=== PATIENT | female | born 1930 | race Caucasian/White ===

== ENCOUNTER 2016-05-29 11:37 | Emergency (ER) | payer MEDICARE, MEDICAID ==
[~2016-05-29] VITALS: Ht 162.6 cm; Wt 77.1 kg
[~2016-05-29 11:37] MED LIST: AMLO5TAB2 PO; BETH25TA PO; DONE5TAB30 PO; DONE5TAB8 PO; HCT25T PO; LEVO50TA PO; LEVO50TA6 PO; LISI-552 PO; LISI10TA2 PO; MECL-124 PO; MEMA5TAB PO; MEMA5TAB16 PO; SCOP1PAT TD
--- OUTSIDE RECORDS SUMMARY | 2016-05-29 11:44 | XMS REPORT | Continuity of Care Document ---
Author Author [facility] Organization [facility] Address Unknown Phone Unavailable Care Team Providers Care Transactional Paralegal Name Role Phone PCP Unavailable Source Comments Some departments are not documenting in the electronic medical record. If you do not see the information that you expected, contact Release of Information in the Health Information Management department at [phone] for further assistance in locating additional records.[facility] Active Allergies and Adverse Reactions Allergen Noted Date Severity Reactions Comments Penicillins 01/03/2015 Medium HIVES Current Medications Prescription Sig. Disp. Refills Start End Date Status Date erythromycin (ROMYCIN) Apply 0.5 Inches to both 1 Tube 2 01/04/20 Active ophthalmic ointment eyes twice daily. 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 To OR for wide excision with frozen sections and reconstruction. Excisional biopsy of right lower eyelid Nuclear sclerotic cataract of both eyes 01/03/2015 Last Assessment & Plan: Needs to establish care with a primary eye doctor for evaluation. 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 01/03/2015 Social History Tobacco Use Types Packs/Day Years Used Date Never Smoker Last Filed Vital Signs Vital Sign Reading Time Taken Blood Pressure 144/84 01/03/2015 12:54 PM CDT Pulse 92 01/03/2015 12:54 PM CDT Temperature - - Respiratory Rate - - Height 1.702 m (5' 7") 01/03/2015 12:54 PM CDT Weight 74.39 kg (164 lb) 01/03/2015 12:54 PM CDT Body Mass Index 25.68 01/03/2015 12:54 PM CDT Oxygen Saturation - - Plan of Care Health Maintenance Due Date Last Done Comments Physical (Comprehensive) 08/27/1939 Exam Pertussis Vaccine 08/27/1943 Tetanus Vaccine 1949 Breast Cancer Screening 1972 Shingles Vaccine 1992 Osteoporosis Screening 1997 Prevnar/Pneumovax (#1) 1997 Influenza Vaccine 01/18/2015 Results from Last 3 Months Not on file
[2016-05-29 12:21] LABS: BILIRUBIN,URINE NEGATIVE (NEGATIVE); KETONES,URINE NEGATIVE (NEGATIVE); LEUKOCYTE ESTERASE ,URINE 3+ (NEGATIVE); NITRITE,URINE POSITIVE (NEGATIVE); PH,URINE 6 (5-9); PROTEIN,URINE 1+ (NEGATIVE); UROBILINOGEN,URINE NORMAL (NORMAL)
--- NOTE | 2016-05-29 12:25 | ED GU-Female ---
General Chief Complaint: -Female Stated Complaint: UNABLE TO URINATE Source: patient, family Exam Limitations: no limitations History of Present Illness Time seen by provider: 12:00 Initial Comments Here with report unable to urinate. Apparently had Lewis catheter removed yesterday and has not urinated since. Patient has neurogenic bladder. Denies any pain, fever or breathing problems. Here for catheter placement and then will follow-up with her primary care doctor, Dr. Schuster. Timing/Duration: yesterday, getting worse Severity/Quality: mild, other (fullness) Location: suprapubic Associated Symptoms: No fever/chills, No nausea/vomiting, No urinary frequency Allergies and Home Medications Allergies Coded Allergies: Penicillins (Unverified Allergy, Unknown, 05/06/16) Home Medications Amlodipine Besylate 5 Mg Tablet 30Days 5 MG PO DAILY Prescribed by: MOOKIE STATON on 05/09/16 1214 Bethanechol Chloride 25 Mg Tablet 30Days 50 MG PO ACHS Prescribed by: CHRISTIAN COX on 05/04/16 1120 Donepezil HCl 5 Mg Tablet 5 MG PO HS (Reported) Levothyroxine Sodium 50 Mcg Tablet 50 MCG PO DAILY (Reported) Lisinopril 20 Mg Tablet 30Days 20 MG PO DAILY Prescribed by: MOOKIE STATON on 05/09/16 1214 Memantine HCl 5 Mg Tablet 5 MG PO DAILY (Reported) Constitutional: see HPINo chills, No fever Respiratory: no symptoms reported Cardiovascular: no symptoms reported Genitourinary: see HPIdenies dysuria Past Ucvtpnd-Sfxojw-Nefzio Hx Patient Social History Alcohol Use: Denies Use Recreational Drug Use: No Smoking Status: Never a Smoker Recent Foreign Travel: No Contact w/Someone Who Travel: No Recent Hopitalizations: No Seasonal Allergies Seasonal Allergies: No Surgeries HX Surgeries: No Respiratory Hx Respiratory Disorders: No Cardiovascular Hx Cardiac Disorders: Yes Cardiac Disorders: Hypertension Neurological Hx Neurological Disorders: Yes (Confusion, Fall 04/30/16 with confusion noted) Reproductive System Hx Reproductive Disorders: No Genitourinary Hx Genitourinary Disorders: Yes (UTI's) Genitourinary Disorders: UTI-Chronic Gastrointestinal Hx Gastrointestinal Disorders: No Musculoskeletal Hx Musculoskeletal Disorders: No Endocrine Hx Endocrine Disorders: Yes Endocrine Disorders: Hypothyroidsim HEENT HX ENT Disorders: No Cancer Hx Cancer: No Psychosocial Hx Psychiatric Problems: No Integumentary HX Skin/Integumentary Disorder: No Blood Transfusions Hx Blood Disorders: No Family Medical History Significant Family History: Other Conditions/Hx Family Medial History: Patient reports no known family medical history. Physical Exam Vital Signs Vital Sign - Last 12Hours 05/29/16 11:58 Temp 96.9 Pulse 90 Resp 18 B/P 160/103 Pulse Ox 96 O2 Delivery Room Air Capillary Refill : General Appearance: WD/WN no apparent distress Cardiovascular: regular rate, rhythm no murmur Respiratory: lungs clear normal breath sounds Gastrointestinal: non tender soft Neurologic/Psychiatric: alert oriented x 3 Progress/Results/Core Measures Results/Orders Lab Results Laboratory Tests Test 05/29/16 12:14 Range/Units Urine Bacteria MODERATE H /HPF Urine Bilirubin NEGATIVE NEGATIVE Urine Casts NONE /LPF Urine Clarity SLIGHTLY CLOUDY Urine Color YELLOW Urine Crystals NONE /LPF Urine Culture Indicated YES Urine Glucose (UA) NEGATIVE NEGATIVE Urine Ketones NEGATIVE NEGATIVE Urine Leukocyte Esterase 3+ H NEGATIVE Urine Mucus NEGATIVE /LPF Urine Nitrite POSITIVE H NEGATIVE Urine Protein 1+ H NEGATIVE Urine RBC 2-5 H /HPF Urine RBC (Auto) 1+ H NEGATIVE Urine Specific [place] 1.020 1.016-1.022 Urine Squamous Epithelial Cells 5-10 /HPF Urine Urobilinogen NORMAL NORMAL MG/DL Urine WBC 50-100 H /HPF Urine pH 6 5-9 My Orders Orders-YOUSIF MATHEW MD Catheter(Urinary) Insert & Ass (05/29/16 12:03) Vital Signs/I&O Vital Sign - Last 12Hours 05/29/16 11:58 Temp 96.9 Pulse 90 Resp 18 B/P 160/103 Pulse Ox 96 O2 Delivery Room Air Progress Note : Progress Note Seen and evaluated. Lewis catheter placed via 16 [place] Lewis. UA obtained. Approximately 800 mL of yellow urine obtained. No difficulty with placement or pain noted. Discharged home with return precautions. Patient verbalize understanding instructions and agreement with plan. She will follow-up with Dr. Schuster today for discussion about home health nursing for her other underlying medical conditions as well as the Lewis catheter. Departure Impression Impression: Primary Impression: Urinary retention Additional Impression: Urinary tract infection Qualified Code: N30.00 - Acute cystitis without hematuria Disposition: HOME, SELF-CARE Condition: Improved Departure-Patient Inst. Decision time for Depature: 12:24 Referrals: GILMA SCHUSTER DO (PCP/Family) Primary Care Physician Patient Instructions: How to Care for Your Lewis Catheter, Female, Urinary Retention (DC), Urinary Tract Infection, Adult (DC) Add. Discharge Instructions: All discharge instructions reviewed with patient and/or family. Voiced understanding. Follow-up with Dr. Schuster after discharge from here. Return for worse pain, swelling, weakness, breathing problems, fever or other concerns as needed. Catheter care as described in per previous instructions. Scripts Cephalexin 500 Mg [id number] Mg PO TID #21 TAB Prov:YOUSIF MATHEW MD 05/29/16 Copy Copies To 1: GILMA SCHUSTER TIMOTHY D MD May 29, 2016 12:25
[2016-05-29 12:36] LABS: WBC,URINE 50-100 /HPF
[2016-05-29] MEDS ORDERED: CEPH500T PO (12:53)
[2016-05-29] MEDS ORDERED: [UNRECOGNIZED DRUG - OTHER] (13:02)
[2016-05-29 13:23] VITALS: BP 160/90
== END 2016-05-29 13:22 | disposition home or self-care (01) ==
LOC: EDUNIT# 11:37 → ER 11:39
DX: R33.9 Retention of urine, unspecified (principal); N31.9 Neuromuscular dysfunction of bladder, unspecified; N39.0 Urinary tract infection, site not specified; I10 Essential (primary) hypertension; Z79.899 Other long term (current) drug therapy
CPT/HCPCS: 51702; 81000; 87077; 87088; 87186

== ENCOUNTER 2016-06-27 12:06 | Inpatient (IN) | payer MEDICARE, MEDICAID ==
[2016-06-27] VITALS (15 sets, daily range): BP systolic 54–111; BP diastolic 26–92
[~2016-06-27] VITALS: Ht 157.5 cm; Wt 72.4 kg
[~2016-06-27 12:06] MED LIST changes: +CEPH500T PO; +[UNRECOGNIZED DRUG - OTHER]
--- OUTSIDE RECORDS SUMMARY | 2016-06-27 12:11 | XMS REPORT | Continuity of Care Document ---
Author Author [facility] Organization [facility] Address Unknown Phone Unavailable Care Team Providers Care Legal Recruiter Name Role Phone PCP Unavailable Source Comments Some departments are not documenting in the electronic medical record. If you do not see the information that you expected, contact Release of Information in the Health Information Management department at [phone] for further assistance in locating additional records.[facility] Active Allergies and Adverse Reactions Allergen Noted [...]
[2016-06-27] MEDS ORDERED: NS 1000 ML IV BAG IV ONE (12:15)
--- NOTE | 2016-06-27 12:33 | ED General ---
General Chief Complaint: Dizziness/Syncope Stated Complaint: DIZZY, NOT EATING OR DRINKING Source of Information: Patient, Family Exam Limitations: No Limitations History of Present Illness Time Seen by Provider: 12:32 Initial Comments Patient was sent here from the doctor's office for evaluation of dehydration. Apparently the patient has not been eating or drinking much in the past several days. She is very lightheaded. She nearly passed out on the toilet yesterday. He denies vomiting or diarrhea. She denies pain although the esgqindg-wi-eua says she has been complaining of chest pain. No shortness of air. Allergies and Home Medications Allergies Coded Allergies: Penicillins (Unverified Allergy, Unknown, 05/06/16) Home Medications Donepezil HCl 5 Mg Tablet 5 MG PO HS (Reported) Levothyroxine Sodium 50 Mcg Tablet 50 MCG PO DAILY (Reported) Memantine HCl 5 Mg Tablet 5 MG PO DAILY (Reported) Mirtazapine 7.5 Mg Tablet 7.5 MG PO HS (Reported) Constitutional: malaise weakness EENTM: no symptoms reported Respiratory: no symptoms reported Cardiovascular: chest pain All Other Systems Reviewed Negative Unless Noted: Yes Past Mdwfxle-Mlsrbr-Eelatr Hx Patient Social History Recent Foreign Travel: No Contact w/Someone Who Travel: No Recent Hopitalizations: No Seasonal Allergies Seasonal Allergies: No Surgeries HX Surgeries: No Respiratory Hx Respiratory Disorders: No Cardiovascular Hx Cardiac Disorders: Yes Cardiac Disorders: Hypertension Neurological Hx Neurological Disorders: Yes (Confusion, Fall 04/30/16 with confusion noted) Reproductive System Hx Reproductive Disorders: No Genitourinary Hx Genitourinary Disorders: Yes (UTI's) Genitourinary Disorders: UTI-Chronic Gastrointestinal Hx Gastrointestinal Disorders: No Musculoskeletal Hx Musculoskeletal Disorders: No Endocrine Hx Endocrine Disorders: Yes Endocrine Disorders: Hypothyroidsim HEENT HX ENT Disorders: No Cancer Hx Cancer: No Psychosocial Hx Psychiatric Problems: No Integumentary HX Skin/Integumentary Disorder: No Blood Transfusions Hx Blood Disorders: No Reviewed Nursing Assessment Reviewed/Agree w Nursing PMH: Yes Family Medical History Significant Family History: Other Conditions/Hx Family Medial History: Patient reports no known family medical history. Physical Exam Vital Signs Vital Sign - Last 12Hours 06/27/16 06/27/16 12:15 13:06 Temp 98.2 Pulse 114 Resp 18 B/P 87/51 Pulse Ox 95 O2 Delivery Room Air Capillary Refill : General Appearance: No Apparent Distress WD/WN Eyes: Bilateral Eye EOMI, Bilateral Eye Normal Inspection, Bilateral Eye PERRL HEENT: PERRL/EOMI Pharynx Normal Neck: Supple Respiratory: Lungs Clear Normal Breath Sounds Cardiovascular: Regular Rate, Rhythm No Edema Gastrointestinal: Non Tender Soft Extremity: Normal Inspection Normal Range of Motion Neurologic/Psychiatric: Alert No Motor/Sensory Deficits Normal Mood/Affect Other (oriented to person and place only, awake alert, denies pain) Skin: Normal Color Warm/Dry Progress/Results/Core Measures Results/Orders Lab Results Laboratory Tests Test 06/27/16 12:23 06/27/16 12:33 06/27/16 13:16 Range/Units B-Type Natriuretic Peptide 1837.6 H <100.0 PG/ML Alanine Aminotransferase (ALT/SGPT) 25 0-55 U/L Albumin 3.5 3.2-4.5 G/DL Alkaline Phosphatase 73 40-136 U/L Anion Gap 15 H 5-14 MMOL/L Anisocytosis SLIGHT Aspartate Amino Transf (AST/SGOT) 91 H 5-34 U/L BUN/Creatinine Ratio 13 Band Neutrophils 1 % Basophils # (Auto) 0.0 0.0-0.1 10^3/uL Basophils % (Manual) 0 % Basophils (%) (Auto) 0 0-10 % Blood Urea Nitrogen 30 H 7-18 MG/DL Calcium Level 9.1 8.5-10.1 MG/DL Carbon Dioxide Level 19 L 21-32 MMOL/L Chloride Level 104 98-107 MMOL/L Creatinine 2.25 H 0.60-1.30 MG/DL Eosinophils # (Auto) 0.0 0.0-0.3 10^3/uL Eosinophils % (Manual) 0 % Eosinophils (%) (Auto) 0 0-10 % Estimat Glomerular Filtration Rate 21 Glucose Level 133 H 70-105 MG/DL Hematocrit 38 35-52 % Hemoglobin 12.3 11.5-16.0 G/DL Lymphocytes # (Auto) 4.8 H 1.0-4.0 X 10^3 Lymphocytes % (Manual) 21 % Lymphocytes (%) (Auto) 18 12-44 % Mean Corpuscular Hemoglobin 30 25-34 PG Mean Corpuscular Hemoglobin Concent 33 32-36 G/DL Mean Corpuscular Volume 91 80-99 FL Mean Platelet Volume 10.3 7.4-10.4 FL Monocytes # (Auto) 1.9 H 0.0-1.0 X 10^3 Monocytes % (Manual) 7 % Monocytes (%) (Auto) 7 0-12 % Neutrophils # (Auto) 19.8 H 1.8-7.8 X 10^3 Neutrophils % (Manual) 71 % Neutrophils (%) (Auto) 75 42-75 % Platelet Count 300 130-400 10^3/uL Potassium Level 4.0 3.6-5.0 MMOL/L Red Blood Count 4.14 L 4.35-5.85 10^6/uL Red Cell Distribution Width 14.8 H 10.0-14.5 % Sodium Level 138 135-145 MMOL/L Total Bilirubin 0.8 0.1-1.0 MG/DL Total Protein 6.8 6.4-8.2 G/DL Troponin I 90.50 *H <0.30 NG/ML White Blood Count 26.4 H 4.3-11.0 10^3/uL Lactic Acid Level 3.1 *H 0.5-2.0 MMOL/L My Orders Orders-JUAN JOSÉ GRIGGS MD Cbc With Automated Diff (06/27/16 12:08) Comprehensive Metabolic Panel (06/27/16 12:08) Ua Culture If Indicated (06/27/16 12:08) Ns Iv 1000 Ml (Sodium Chloride 0.9%) (06/27/16 12:15) Troponin I (06/27/16 12:16) Ekg Tracing (06/27/16 12:16) Chest 1 View, Ap/Pa Only (06/27/16 12:16) Manual Differential (06/27/16 12:33) Lactic Acid Analyzer (06/27/16 12:55) Blood Culture (06/27/16 12:55) Ns Iv 1000 Ml (Sodium Chloride 0.9%) (06/27/16 13:30) BNP (06/27/16 13:22) Lidocaine 1% Injection (Xylocaine 1% Inj (06/27/16 14:13) Ns Iv 1000 Ml (Sodium Chloride 0.9%) (06/27/16 14:13) Heparin ([employer]) (Heparin ([employer])) (06/27/16 14:13) Midazolam Injection (Versed Injection) (06/27/16 14:14) Fentanyl Injection (Sublimaze Injection (06/27/16 14:14) Medications Given in ED Current Medications Medications Dose Ordered Sig/Husam Route Start Time Stop Time Status Last Admin Dose Admin Sodium Chloride 1,000 ml ONCE ONCE IV 06/27/16 12:15 06/27/16 12:16 DC 06/27/16 12:53 1,000 ML Vital Signs/I&O Vital Sign - Last 12Hours 06/27/16 06/27/16 12:15 13:06 Temp 98.2 98.2 Pulse 114 102 Resp 18 16 B/P 87/51 97/59 Pulse Ox 95 93 O2 Delivery Room Air Progress Note : Time: 13:58 Progress Note Patient remains remarkably asymptomatic. Blood pressure 91/48 heart rate 97 after fluid infusion. No source of infection. I suspect white count and lactic acidosis are secondary to myocardial infarction. Lewis inserted, no urine output thus far. ECG Initial ECG Rhythm: Normal Sinus Initial ECG Intervals: Normal Initial ECG Impression: Nonspecific Changes Comment There are Q waves anteriorly with ST elevation. This represents an [place] of uncertain age. Critical Care Note Critical Care Total Time (minutes) Total critical care time spent with this patient was 30 minutes Departure Communication Time/Spoke to Admitting Phy: 13:54 Communication I spoke with Dr. Schuster he agrees to admit the ICU. Time/Spoke to Consulting Physi: 13:59 Communication/Consulting I spoke with Dr. Rosales. He is coming to the ER to evaluate the patient. Progress Notes Dr. Rosales saw patient and plans on taking her to the catheter lab Impression Impression: Primary Impression: Myocardial infarction Qualified Code: I21.4 - Non-ST elevation (NSTEMI) myocardial infarction Additional Impression: Acute renal failure Disposition: ADMITTED INPATIENT Condition: Stable Decision to Admit Reason: Admit from ER (General) Decision to Admit/Date: Jun 27, 2016 Time/Decision to Admit Time: 14:19 Departure-Patient Inst. Referrals: GILMA SCHUSTER DO (PCP/Family) Primary Care Physician JUAN JOSÉ GRIGGS MD Jun 27, 2016 12:33
[2016-06-27 12:45] LABS: BASOPHILS % (AUTO) 0 % (0-10); EOSINOPHILS % (AUTO) 0 % (0-10); LYMPHOCYTES # (AUTO) 4.8 X 10^3 (1.0-4.0); LYMPHOCYTES % (AUTO) 18 % (12-44); MEAN CORPUSCULAR HEMOGLOBIN 30 PG (25-34); MEAN CORPUSCULAR HGB CONC 33 G/DL (32-36); MEAN CORPUSCULAR VOLUME 91 FL (80-99); MEAN PLATELET VOLUME 10.3 FL (7.4-10.4); MONOCYTES # (AUTO) 1.9 X 10^3 (0.0-1.0); MONOCYTES % (AUTO) 7 % (0-12); NEUTROPHILS # (AUTO) 19.8 X 10^3 (1.8-7.8); NEUTROPHILS % (AUTO) 75 % (42-75); PLATELET COUNT 300 10^3/uL (130-400); RED BLOOD COUNT 4.14 10^6/uL (4.35-5.85); RED CELL DISTRIBUTION WIDTH 14.8 % (10.0-14.5); WHITE BLOOD COUNT 26.4 10^3/uL (4.3-11.0)
[2016-06-27] MEDS ORDERED: MIRT7.5T8 PO (12:52)
[2016-06-27 13:11] LABS: ALBUMIN 3.5 G/DL (3.2-4.5); BILIRUBIN,TOTAL 0.8 MG/DL (0.1-1.0); CALCIUM 9.1 MG/DL (8.5-10.1); CREATININE SERUM 2.25 MG/DL (0.60-1.30); TOTAL PROTEIN 6.8 G/DL (6.4-8.2)
[2016-06-27 13:16] LABS: ANISOCYTOSIS SLIGHT; BAND NEUTROPHILS 1 %; BASOPHILS % (MANUAL) 0 %; EOSINOPHILS % (MANUAL) 0 %; LYMPHOCYTES % (MANUAL) 21 %; NEUTROPHILS % (MANUAL) 71 %
--- NOTE | 2016-06-27 13:19 | Diagnostic Imaging Report ---
EXAM: CHEST 1 VIEW, AP/PA ONLY INDICATION: Chest pain. Dizziness. COMPARISON: Chest radiograph 02/12/2010. FINDINGS: Normal heart size and pulmonary vascularity. Elevation of the right hemidiaphragm. Mild atelectasis or infiltrate in the medial right lung base. Calcified aorta. No pleural effusion or pneumothorax. 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 IMPRESSION: 1. Mild atelectasis or infiltrate in the medial right lung base may be due to the elevation of right hemidiaphragm. No other acute cardiopulmonary findings. 2. 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 Dictated by: Dictated on workstation # [id number]
[2016-06-27] MEDS ORDERED: NS IV 1000 ML 1,000 ML IV SCH ×3 (13:30→21:30)
[2016-06-27 13:37] LABS: TROPONIN I 90.5 NG/ML (<0.30)
[2016-06-27] MEDS ORDERED: LIDOCAINE 1% INJ 20 ML (XYLOCAINE) VIAL ONE (14:13)
[2016-06-27] MEDS ORDERED: HEParin (CATH LAB) 2,000 ML IV ONE (14:13)
[2016-06-27] MEDS ORDERED: NS IV 1000 ML 1,000 ML ONE (14:13)
[2016-06-27] MEDS ORDERED: fentaNYL INJECTION 100 MCG/2 ML AMP ONE (14:14)
[2016-06-27] MEDS ORDERED: MIDAZOLAM 5 MG/5 ML (VERSED) VIAL ONE (14:14)
--- OUTSIDE RECORDS SUMMARY | 2016-06-27 14:35 | XMS REPORT | Continuity of Care Document ---
Author Author [facility] Organization [facility] Address Unknown Phone Unavailable Care Team Providers Care Railroad Worker Name Role Phone PCP Unavailable Source Comments Some departments are not documenting in the electronic medical record. If you do not see the information that you expected, contact Release of Information in the Health Information Management department at [phone] for further assistance in locating additional records.[facility] Active Allergies and Adverse Reactions Allergen Noted [...]
--- OUTSIDE RECORDS SUMMARY | 2016-06-27 14:35 | XMS REPORT | Continuity of Care Document ---
Author Author [facility] Organization [facility] Address Unknown Phone Unavailable Care Team Providers Care Paraprofessional Education Assistant Name Role Phone PCP Unavailable Source Comments Some departments are not documenting in the electronic medical record. If you do not see the information that you expected, contact Release of Information in the Health Information Management department at [phone] for further assistance in locating additional records.[facility] Active Allergies and Adverse Reactions Allergen [...]
[2016-06-27] MEDS ORDERED: HEParin 1000 UNIT/ML (10ML VIAL) FOR BOLUS ONE (14:44)
[2016-06-27] MEDS ORDERED: NITROGLYCERIN DRIP 25 MG/D5W 250 ML IV ONE (14:44)
[2016-06-27] MEDS ORDERED: DOPamine DRIP 250 ML IV ONE (14:57)
[2016-06-27] MEDS ORDERED: NS IV 1000 ML 1,000 ML IV PRN (15:07)
[2016-06-27] MEDS ORDERED: NOREPINEPHRINE FOR DRIPS 4 MG in D5W 250 ML (IVPB) 250 ML IV SCH (15:07)
[2016-06-27] MEDS ORDERED: PIPERACILLIN SODIUM/TAZOBACTAM 4.5 GM in NS (IVPB) 100 ML IV SCH (15:15)
[2016-06-27] MEDS ORDERED: NS IV 1000 ML 2,000 ML IV PRN (15:15)
[2016-06-27] MEDS ORDERED: FAMOTIDINE 20 MG (PEPCID) TABLET PO PRN (15:15)
[2016-06-27] MEDS ORDERED: VANCOMYCIN IV ADD-VANTAGE 1,000 MG in SODIUM CHLORIDE (ADD-VANTAGE) 250 ML IV SCH (15:15)
[2016-06-27] MEDS ORDERED: PATIENT MAY USE OWN MEDS, ALL PO SCH (15:15)
[2016-06-27] MEDS ORDERED: PHARMACY TO DOSE IV SCH (15:15)
[2016-06-27] MEDS ORDERED: ASPIRIN 325 MG (5 GR) TABLET ONE (15:19)
[2016-06-27 15:31] LABS: INR 1.1 (0.8-1.4); PROTHROMBIN TIME PATIENT 14.1 SEC (12.2-14.7)
[2016-06-27] MEDS ORDERED: PHENTOLAMINE 5 MG/2 ML VIAL IJ ONE (16:15)
[2016-06-27] MEDS ORDERED: VANCOMYCIN 1250 MG/NS 250 ML IVPB IV NR ×2 (16:30)
[2016-06-27] MEDS ORDERED: ENOXAPARIN 30 MG/0.3 ML (LOVENOX) SYR SC SCH (16:30)
--- NOTE | 2016-06-27 16:30 | Cardiology History & Physical ---
HPI-Cardiology Cardiology Consultation Date of Consultation 06/27/16 Date of Admission Indication: CP, subacute CT HPI Patient is a very pleasant 85 y/o female who presented to the ER from her PCP office for further evaluation of dehydration and poor oral intake. Patient has dementia and is somewhat of poor historian, and most information is obtained from family member who is at her bedside. Family reports patient with complaints of intermittent CP over the last several days. Had episode of near syncope after using restroom yesterday. Reports decreased appetite over the past several days. Further workup in the ER revealed patient with NSTEMI. Patient taken to the metallurgical lab technician for cardiac catheterization. patient was seen and evaluated with Tabby, she is an 85-year-old lady seen in the emergency room with acute chest pain and change in mental status, has been confused, had a fall 4 days ago, has been having generalized weakness and loss of energy. Noted to have abnormal EKG with elevated troponin. I decided to proceed with emergency cardiac catheterization. PMH-Cardiology Seasonal Allergies Seasonal Allergies: No Surgeries HX Surgeries: Yes Respiratory Hx Respiratory Disorders: No Cardiovascular Hx Cardiovascular Disorders: Yes Cardiac Disorders: Hypertension Neurological Hx Neurological Disorders: Yes (Confusion, Fall 04/30/16 with confusion noted) Neurological Disorders: Dementia Reproductive System Hx Reproductive Disorders: No Genitourinary Hx Genitourinary Disorders: Yes (UTI's, HAS URINARY KELLY CATH) Genitourinary Disorders: UTI-Chronic Gastrointestinal Hx Gastrointestinal Disorders: No Musculoskeletal Hx Musculoskeletal Disorders: No Endocrine Hx Endocrine Disorders: Yes Endocrine Disorders: Hypothyroidsim HEENT HX ENT Disorders: No Cancer Hx Cancer: No Psychosocial Hx Psychiatric Problems: No Integumentary HX Skin/Integumentary Disorder: No Blood Transfusions Hx Blood Disorders: No Social History Patient Social History Alcohol Use: Denies Use Recreational Drug Use: No Recent Foreign Travel: No Contact w/other who traveled: No Recent Infectious Disease Expo: No Family Hx Significant Family History: No Pertinent Family Hx, Other Conditions/Hx Family History: Patient reports no known family medical history. ROS-Cardiology Review of Systems General: Fatigue Malaise Appetite (decreased appetitie) HEENT: No Visual Changes, No Dysphasia, No Sore Throat Pulmonary: No Dyspnea, No Cough Cardiovascular: : Chest Pain: Lt HeadednessNo: Edema, Paroxysmal Noc. Dyspnea Gastrointestinal: No: Abdominal Pain, Nausea, Vomiting Genitourinary: No Dysuria, No Frequency Musculoskeletal: No: back pain, neck pain Neurological: : Confusion: WeaknessNo: Change in speech, Numbness Home Medications & Allergies Allergies: Coded Allergies: Penicillins (Unverified Allergy, Unknown, 05/06/16) Home Medication List Reviewed: Yes Exam-Cardiology Vital Signs Vital Signs Date Time Temp Pulse Resp B/P Pulse Ox O2 Delivery O2 Flow Rate FiO2 06/27/16 14:21 101 20 98 06/27/16 13:06 98.2 97/59 Room Air Exam General Appearance: Alert, Oriented X3, Cooperative, Mild Distress HEENT: Atraumatic Respiratory: Other (diminished breath sounds) Cardiovascular: Regular Rate, Other (systolic murmur present at LSB) Abdominal: Normal Bowel Sounds, Soft, No Tenderness Extremities: No Clubbing, No Cyanosis Skin: No Rashes, No Significant Lesion Neuro: Normal Speech, Cranial Nerves 3-12 NL Psych/Mental Status: Other (dementia) Results Labs Labs Laboratory Tests 06/27/16 12:23: B-Type Natriuretic Peptide 1837.6H 06/27/16 12:33: Activated Partial Thromboplast Time 37H, Alanine Aminotransferase (ALT/SGPT) 25 , Albumin 3.5, Alkaline Phosphatase 73, Anion Gap 15H, Anisocytosis SLIGHT, Aspartate Amino Transf (AST/SGOT) 91H, BUN/Creatinine Ratio 13, Band Neutrophils 1, Basophils # (Auto) 0.0, Basophils % (Manual) 0, Basophils (%) ( Auto) 0, Blood Urea Nitrogen 30H, Calcium Level 9.1, Carbon Dioxide Level 19L, Chloride Level 104, Creatinine 2.25H, Eosinophils # (Auto) 0.0, Eosinophils % ( Manual) 0, Eosinophils (%) (Auto) 0, Estimat Glomerular Filtration Rate 21, Glucose Level 133H, Hematocrit 38, Hemoglobin 12.3, INR Comment 1.1, Lymphocytes # (Auto) 4.8H, Lymphocytes % (Manual) 21, Lymphocytes (%) (Auto) 18 , Mean Corpuscular Hemoglobin 30, Mean Corpuscular Hemoglobin Concent 33, Mean Corpuscular Volume 91, Mean Platelet Volume 10.3, Monocytes # (Auto) 1.9H, Monocytes % (Manual) 7, Monocytes (%) (Auto) 7, Neutrophils # (Auto) 19.8H, Neutrophils % (Manual) 71, Neutrophils (%) (Auto) 75, Platelet Count 300, Potassium Level 4.0, Prothrombin Time 14.1, Red Blood Count 4.14L, Red Cell Distribution Width 14.8H, Sodium Level 138, Total Bilirubin 0.8, Total Protein 6.8, Troponin I 90.50*H, White Blood Count 26.4H 06/27/16 13:16: Lactic Acid Level 3.1*H 06/27/16 14:57: Lactic Acid Level 1.4 A/P-Cardiology Admission Diagnosis Subacute CT Cardiogenic Shock Septic Shock Dementia Assessment/Plan CAD with subacute CT- 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 After discussion with family, it was decided to proceed with medical management. Started on ASA. Will continue to monitor closely. conservative management per family request. We discussed the possibility of bypass surgery after her cardiac catheterization, decision was made to proceed with conservative management Cardiogenic shock, hypotensive shock, started on dopamine drip. Continue supportive care, started on antibiotics. Septic shock with multiorgan failure- continue antibiotics and supportive care. Dr. Mcarthur consulted. Acute renal failure, history of UTI, polyuria, received 3 L of fluid, continue with aggressive IV fluid and monitor closely. Dementia History of chronic UTI Hypothyroidism- management by PCP This is Tabby Leon PA-C as a scribe for Dr. Rosales. Patient was seen and evaluated with Tabby, I agree with the current scribe, I interviewed the patient and examined the patient by myself. She has systolic murmur at the left sternal border, I will evaluate echocardiogram, lungs were clear to auscultation, she was slightly confused. She had poor R-wave progression with Q waves in the anterior leads with elevated troponin, cardiac catheterization was carried out under emergency conditions. She was hypotensive shock. Started on dopamine drip. Questionable septic shock with multiorgan failure, start empiric antibiotic, blood cultures were ordered. Dr. Mcarthur was consulted, she has underlying dementia, acute renal failure. Started on IV fluid. I reviewed the note and agree with the current scribe, I did few modification using Italic Font TABBY RIVAS Jun 27, 2016 16:30 KARLO ROSALES MD Jun 27, 2016 17:07
[2016-06-27] MEDS: NS IV 1000 ML 1,000 ML IV SCH ×2 (16:38→20:58)
[2016-06-27] MEDS ORDERED: NOREPINEPHRINE 4 MG/4 ML (LEVOPHED) AMP IV ONE ×2 (16:40→22:46)
[2016-06-27] MEDS ORDERED: D5W 250 ML (IVPB) 250 ML IV ONE ×2 (16:41→22:46)
--- NOTE | 2016-06-27 17:09 | Cardiac Procedure Note-CS/ASA ---
Pre-Procedure Note Pre-Op Procedure Note H&P Reviewed The H&P was reviewed, patient examined and no changes noted. Date H&P Reviewed: Jun 27, 2016 Time H&P Reviewed: 17:08 Conscious Sedation Pre-Proced Time Reviewed: 17:08 ASA Class: 3 Airway Mallampati Classification: (seldovia appropriate class) I. II. III, IV Lungs Heart ASA score ASA 1: a normal healthy patient ASA 2: a patient with a mild systemic disease (mid diabetes, controlled hypertension, obesity x ASA 3: a patient with a severe systemic disease that limits activity (angina , COPD, prior Myocardial infarction) ASA 4: a patient with an incapacitating disease that is a constant threat to life (CHF, renal failure) ASA 5: a moribund patient not expected to survive 24 hrs. (ruptured aneurysm) ASA 6: a declared brain patient whose organs are being harvested. For emergent operations, add the letter E after the classification Grade 3 Sedation Plan: Analgesia, Amnesia, Plan communicated to team members, Discussed options with patient/fam, Discussed risks with patient/fam Note The patient is an appropriate candidate to undergo the planned procedure, sedation, and anesthesia. The patient immediately re-assessed prior to indication. KARLO STEVENSON MD Jun 27, 2016 5:09 pm
[2016-06-27] MEDS ORDERED: CEFEPIME INJECTION 2,000 MG in NS (IVPB) 50 ML IV SCH (18:00)
[2016-06-27] MEDS: NOREPINEPHRINE 4 MG in D5W 250 ML (IVPB) 250 ML IV SCH ×2 (18:43→22:53)
[2016-06-27] MEDS ORDERED: FLU TRIvalent (5 YOA+) 2016-17 (AFLURIA) 0.5 ML IM ONE (18:45)
--- NOTE | 2016-06-27 18:48 | Diagnostic Imaging Report ---
INDICATION: Central line placement. COMPARISON STUDY: Chest from 06/27/2016. FINDINGS: Since earlier today, a right jugular catheter has been placed with its tip near the atriocaval junction. Pulmonary vascularity has increased. There are no effusions. IMPRESSION: Increasing pulmonary vascularity. A few Nikita B lines are present. The central venous catheter is in good position. Dictated by: Dictated on workstation # [id number]
--- NOTE | 2016-06-27 19:00 | Consultation ---
History of Present Illness History of Present Illness Patient Consulted On(cesar/time) 06/27/16 18:56 Date of Admission Reason for Visit: CP, subacute MA History of Present Illness patient was brought to the office today by [id number]. Patient has dementia and unable to give a history . According to the [id number] 3 days ago patient had a large bowel movement and then got up and felt dizzy. Patient has not taken any fluids in the last 3 days. Patient office was hypotensive and tachycardic. Patient was weak. Patient sent out to the emergency room. Troponin 90. Renal failure. Hypotensive. Patient admitted Surgeries gallbladder only History by family Allergies and Home Medications Allergies Coded Allergies: Penicillins (Unverified Allergy, Unknown, 05/06/16) Home Medications Donepezil HCl 5 Mg Tablet 5 MG PO HS (Reported) Levothyroxine Sodium 50 Mcg Tablet 50 MCG PO DAILY (Reported) Memantine HCl 5 Mg Tablet 5 MG PO DAILY (Reported) Mirtazapine 7.5 Mg Tablet 7.5 MG PO HS (Reported) Past Nrxyxyx-Qcbrdy-Vgrgia Hx Patient Social History Alcohol Use: Denies Use Recreational Drug Use: No Smoking Status: Never a Smoker Recent Foreign Travel: No Contact w/Someone Who Travel: No Recent Infectious Disease Expo: No Recent Hopitalizations: No Physical Abuse Screen: No Sexual Abuse: No Seasonal Allergies Seasonal Allergies: No Surgeries HX Surgeries: Yes Surgeries: Appendectomy Respiratory Hx Respiratory Disorders: No Cardiovascular Hx Cardiac Disorders: Yes Cardiac Disorders: Hypertension Neurological Hx Neurological Disorders: Yes (Confusion, Fall 04/30/16 with confusion noted) Neurological Disorders: Dementia Reproductive System Hx Reproductive Disorders: No Genitourinary Hx Genitourinary Disorders: Yes (UTI's, HAS URINARY KELLY CATH) Genitourinary Disorders: UTI-Chronic Gastrointestinal Hx Gastrointestinal Disorders: No Gastrointestinal Disorders: Gall Bladder Disease Musculoskeletal Hx Musculoskeletal Disorders: No Endocrine Hx Endocrine Disorders: Yes Endocrine Disorders: Hypothyroidsim HEENT HX ENT Disorders: No Cancer Hx Cancer: No Psychosocial Hx Psychiatric Problems: No Integumentary HX Skin/Integumentary Disorder: No Blood Transfusions Hx Blood Disorders: No Reviewed Nursing Assessment Reviewed/Agree w Nursing PMH: Yes Family Medical History Significant Family History: No Pertinent Family Hx, Other Conditions/Hx Family Medial History: FH: cancer 19 MOTHER Glaucoma 19 FATHER Review of Systems-General Constitutional: malaise weakness EENTM: no symptoms reported Respiratory: no symptoms reported Cardiovascular: chest pain other (older pain) Gastrointestinal: vomiting Genitourinary: no symptoms reported see HPI Physical Exam-General Problems Physical Exam Vital Signs Vital Sign - Last 12Hours 06/27/16 06/27/16 12:15 13:06 Temp 98.2 Pulse 114 Resp 18 B/P 87/51 Pulse Ox 95 O2 Delivery Room Air Capillary Refill : Less Than 3 Seconds General Appearance: no apparent distress Eyes: Bilateral Eye Normal Inspection HEENT: normal ENT inspection Neck: full range of motion Respiratory: chest non-tender lungs clear normal breath sounds no respiratory distress no accessory muscle use Cardiovascular: regular rate, rhythm no murmur Gastrointestinal: non tender soft Assessment/Plan Assessment/Plan Admission Diagnosis/Plan CAD with subacute MA. Cardiogenic shock. Sepsis with multiorgan failure. Acute renal failure. Dementia. Chronic UTI. Hypothyroid GILMA SCHUSTER DO Jun 27, 2016 19:00
[2016-06-27] MEDS ORDERED: DONEPEZIL 5 MG (ARICEPT) TAB PO SCH (21:00)
[2016-06-27] MEDS ORDERED: ONDANSETRON 4 MG/2 ML (SDV) Z0FRAN IVP ONE (21:15)
[2016-06-27 21:58] LABS: KETONES,URINE NEGATIVE (NEGATIVE); LEUKOCYTE ESTERASE ,URINE 3+ (NEGATIVE); NITRITE,URINE NEGATIVE (NEGATIVE); PH,URINE 5 (5-9); PROTEIN,URINE 3+ (NEGATIVE); UROBILINOGEN,URINE NORMAL (NORMAL)
[2016-06-27 22:11] LABS: BILIRUBIN,URINE 1+ (NEGATIVE)
[2016-06-27 22:15] LABS: WBC,URINE TNTC /HPF
[2016-06-27 22:16] LABS: YEAST,URINE MODERATE /HPF
[2016-06-28] VITALS (8 sets, daily range): BP systolic 64–113; BP diastolic 38–80
[2016-06-28] MEDS: inSUlin (REGULAR) HUMAN 1 UNIT/0.01 ML (CHARGE PER UNIT) SC SCH ×3 (00:58→11:55)
[2016-06-28] MEDS ORDERED: D5W 250 ML (IVPB) 250 ML IV ONE ×3 (01:03→10:28)
[2016-06-28] MEDS ORDERED: NOREPINEPHRINE 4 MG/4 ML (LEVOPHED) AMP IV ONE ×3 (01:04→10:28)
[2016-06-28] MEDS: NS IV 1000 ML 1,000 ML IV SCH ×3 (01:19→07:07)
[2016-06-28] MEDS: ONDANSETRON 4 MG/2 ML (SDV) Z0FRAN IV PRN ×3 (02:08→11:49)
[2016-06-28] MEDS: NOREPINEPHRINE 4 MG in D5W 250 ML (IVPB) 250 ML IV SCH ×3 (02:49→11:13)
[2016-06-28 04:11] LABS: BASOPHILS % (AUTO) 0 % (0-10); EOSINOPHILS % (AUTO) 0 % (0-10); LYMPHOCYTES # (AUTO) 1.4 X 10^3 (1.0-4.0); LYMPHOCYTES % (AUTO) 6 % (12-44); MEAN CORPUSCULAR HEMOGLOBIN 30 PG (25-34); MEAN CORPUSCULAR HGB CONC 32 G/DL (32-36); MEAN CORPUSCULAR VOLUME 92 FL (80-99); MONOCYTES # (AUTO) 1.3 X 10^3 (0.0-1.0); MONOCYTES % (AUTO) 6 % (0-12); NEUTROPHILS # (AUTO) 20.7 X 10^3 (1.8-7.8); NEUTROPHILS % (AUTO) 89 % (42-75); PLATELET COUNT 224 10^3/uL (130-400); RED BLOOD COUNT 3.57 10^6/uL (4.35-5.85); RED CELL DISTRIBUTION WIDTH 14.8 % (10.0-14.5); WHITE BLOOD COUNT 23.4 10^3/uL (4.3-11.0)
[2016-06-28 04:22] LABS: INR 1.8 (0.8-1.4); PROTHROMBIN TIME PATIENT 20.8 SEC (12.2-14.7)
[2016-06-28 04:33] LABS: ALBUMIN 2.7 G/DL (3.2-4.5); BILIRUBIN,TOTAL 0.9 MG/DL (0.1-1.0); CALCIUM 7.2 MG/DL (8.5-10.1); CREATININE SERUM 2.03 MG/DL (0.60-1.30); MAGNESIUM 1.4 MG/DL (1.8-2.4); PHOSPHORUS 4.2 MG/DL (2.3-4.7); POTASSIUM 4.6 MMOL/L (3.6-5.0); TOTAL PROTEIN 5.2 G/DL (6.4-8.2)
--- NOTE | 2016-06-28 05:15 | Pulmonary Consultation ---
History of Present Illness History of Present Illness Date of Consultation 06/28/16 05:10 Date of Admission Reason for Visit: CP, subacute SD History of Present Illness 85yo with hx of dementia and is poor historian presented to ED from PCP office and found to be dehydrated generalized weakness and poor appetite Had episode of near syncope after using restroom 5 days ago. Troponin was found to be elevated cardiology was consulted and pt dx with NSTEMI. SHe was taken tocath lab for cardiac cath. unable to obtain ROS. I am consulted for ICU management. Allergies and Home Medications Allergies Coded Allergies: Penicillins (Unverified Allergy, Unknown, 05/06/16) Home Medications Donepezil HCl 5 Mg Tablet 5 MG PO HS (Reported) Levothyroxine Sodium 50 Mcg Tablet 50 MCG PO DAILY (Reported) Memantine HCl 5 Mg Tablet 5 MG PO DAILY (Reported) Mirtazapine 7.5 Mg Tablet 7.5 MG PO HS (Reported) Past Dheenkw-Gxemnj-Oexfqu Hx Patient Social History Alcohol Use: Denies Use Recreational Drug Use: No Smoking Status: Never a Smoker Recent Foreign Travel: No Contact w/Someone Who Travel: No Recent Infectious Disease Expo: No Recent Hopitalizations: No Physical Abuse Screen: No Sexual Abuse: No Seasonal Allergies Seasonal Allergies: No Surgeries HX Surgeries: Yes Surgeries: Appendectomy Respiratory Hx Respiratory Disorders: No Cardiovascular Hx Cardiac Disorders: Yes Cardiac Disorders: Hypertension Neurological Hx Neurological Disorders: Yes (Confusion, Fall 04/30/16 with confusion noted) Neurological Disorders: Dementia Reproductive System : No Hx Reproductive Disorders: No Genitourinary Hx Genitourinary Disorders: Yes (UTI's, HAS URINARY KELLY CATH) Genitourinary Disorders: UTI-Chronic Gastrointestinal Hx Gastrointestinal Disorders: No Gastrointestinal Disorders: Gall Bladder Disease Musculoskeletal Hx Musculoskeletal Disorders: No Endocrine Hx Endocrine Disorders: Yes Endocrine Disorders: Hypothyroidsim HEENT HX ENT Disorders: No Cancer Hx Cancer: No Psychosocial Hx Psychiatric Problems: No Integumentary HX Skin/Integumentary Disorder: No Blood Transfusions Hx Blood Disorders: No Reviewed Nursing Assessment Reviewed/Agree w Nursing PMH: Yes Family Medical History Significant Family History: No Pertinent Family Hx, Other Conditions/Hx Family Medial History: FH: cancer 19 MOTHER Glaucoma 19 FATHER Exam Exam Vital Signs Date Time Temp Pulse Resp B/P Pulse Ox O2 Delivery O2 Flow Rate FiO2 06/28/16 04:00 96 06/28/16 04:00 99.1 114 8 74/52 96 Room Air 06/28/16 03:00 108 28 108/56 96 Room Air 06/28/16 02:00 112 8 107/76 95 Room Air 06/28/16 01:00 114 23 82/54 98 Room Air 06/28/16 01:00 114 06/28/16 00:00 97 06/28/16 00:00 98.6 114 13 100/80 96 Room Air 06/27/16 23:00 112 26 103/92 94 Room Air 06/27/16 22:00 107 24 98/72 94 Room Air 06/27/16 21:00 109 26 111/83 96 Room Air 06/27/16 20:00 96.3 106 18 89/73 99 Room Air 06/27/16 20:00 99 06/27/16 19:00 104 06/27/16 19:00 104 25 78/58 100 Room Air 06/27/16 18:00 98 15 98 Room Air 06/27/16 18:00 98 8 80/44 06/27/16 17:45 107 22 54/33 06/27/16 17:30 98 15 58/26 97 Room Air 06/27/16 17:00 107 22 76/46 96 Room Air 06/27/16 16:45 116 11 102/89 87 06/27/16 16:30 130 19 77/43 94 Room Air 06/27/16 16:15 118 13 96/69 95 Room Air 06/27/16 16:00 116 14 97/78 96 Room Air 06/27/16 15:45 107 12 102/64 97 Room Air 06/27/16 15:45 102/50 06/27/16 15:40 96.7 101 21 93/64 97 Room Air 06/27/16 14:21 101 20 98 06/27/16 13:06 98.2 102 16 97/59 93 Room Air 06/27/16 12:15 98.2 114 18 87/51 95 I & O 06/28/16 07:00 Intake Total 4922.5 ml Output Total 185 ml Balance 4737.5 ml General Appearance: No Apparent Distress WD/WN HEENT: PERRL/EOMI Pharynx Normal Neck: Supple Respiratory: Lungs Clear Normal Breath Sounds Cardiovascular: Regular Rate, Rhythm No Edema Capillary Refill: Less Than 3 Seconds Gastrointestinal: non tender soft Extremity: Normal Inspection Normal Range of Motion Neurologic/Psychiatric: Alert No Motor/Sensory Deficits Normal Mood/Affect Other (oriented to person and place only, awake alert, denies pain) Skin: Normal Color Warm/Dry Results Lab Laboratory Tests 06/27/16 12:33 06/28/16 04:00 Assessment/Plan Assessment/Plan Severe sepsis with shock -Continue aggressive IVF -Start solucortef -monitor CVPs -Wean levophed for SBP of 90 or MAP 65 Metabolic lactic acidosis -IVF Acute renal failure Dementia NSTEMI s/p cath Clinical Quality Measures DVT/VTE Risk/Contraindication: Risk Factor Score Per Nursin RFS Level Per Nursing on Admit: 4+=Very High DANIELLE CROWE DO Jun 28, 2016 05:15
[2016-06-28] MEDS ORDERED: NS IV 500 ML 500 ML ONE (05:28)
[2016-06-28] MEDS ORDERED: NS IV 500 ML 1,000 ML IV SCH (05:29)
[2016-06-28] MEDS ORDERED: MAGNESIUM 1 GM/100 ML IVPB 100 ML IV SCH (06:00)
[2016-06-28] MEDS ORDERED: KCL 20 MEQ TAB (K-DUR) PO SCH (06:00)
[2016-06-28] MEDS ORDERED: POTASSIUM CL 10MEQ/50ML IVPB 50 ML IV SCH (06:00)
[2016-06-28] MEDS ORDERED: HYDROCORTISONE 100 MG/2 ML (Solu-CORTEF) VIAL IV SCH (06:00)
[2016-06-28] MEDS: MAGNESIUM 1 GM/100 ML IVPB 100 ML IV SCH ×2 (06:22→07:27)
[2016-06-28] MEDS ORDERED: LEVOTHYROXINE 50 MCG (LEVOTHROID) TAB PO SCH (06:30)
--- NOTE | 2016-06-28 07:19 | Progress Note (SOAP) ---
Subjective Subjective/Events-last exam patient doesn't feel good all over. Patient can't explain why she doesn't feel good. Severe septic shock. Acute renal failure. Non-ST elevated GA. Dementia. Liver enzymes elevated. Lactic acid going up and down today 3.9. White blood cell count 23,400 decreased from yesterday of over 26,000. Patient hypotensive. GFR 23 Objective Exam Vital Signs Date Time Temp Pulse Resp B/P Pulse Ox O2 Delivery O2 Flow Rate FiO2 06/28/16 04:00 96 06/28/16 04:00 99.1 114 8 74/52 96 Room Air 06/28/16 03:00 108 28 108/56 96 Room Air 06/28/16 02:00 112 8 107/76 95 Room Air 06/28/16 01:00 114 23 82/54 98 Room Air 06/28/16 01:00 114 06/28/16 00:00 97 06/28/16 00:00 98.6 114 13 100/80 96 Room Air 06/27/16 23:00 112 26 103/92 94 Room Air 06/27/16 22:00 107 24 98/72 94 Room Air 06/27/16 21:00 109 26 111/83 96 Room Air 06/27/16 20:00 96.3 106 18 89/73 99 Room Air 06/27/16 20:00 99 06/27/16 19:00 104 06/27/16 19:00 104 25 78/58 100 Room Air 06/27/16 18:00 98 15 98 Room Air 06/27/16 18:00 98 8 80/44 06/27/16 17:45 107 22 54/33 06/27/16 17:30 98 15 58/26 97 Room Air 06/27/16 17:00 107 22 76/46 96 Room Air 06/27/16 16:45 116 11 102/89 87 06/27/16 16:30 130 19 77/43 94 Room Air 06/27/16 16:15 118 13 96/69 95 Room Air 06/27/16 16:00 116 14 97/78 96 Room Air 06/27/16 15:45 107 12 102/64 97 Room Air 06/27/16 15:45 102/50 06/27/16 15:40 96.7 101 21 93/64 97 Room Air 06/27/16 14:21 101 20 98 2/8/17 13:06 98.2 102 16 97/59 93 Room Air 06/27/16 12:15 98.2 114 18 87/51 95 I & O 06/28/16 07:00 Intake Total 5942.5 ml Output Total 210 ml Balance 5732.5 ml Capillary Refill : Less Than 3 Seconds General Appearance: No Apparent Distress HEENT: Normal ENT Inspection Neck: Full Range of Motion Normal Inspection Respiratory: Chest Non Tender Lungs Clear Normal Breath Sounds No Accessory Muscle Use No Respiratory Distress Cardiovascular: Regular Rate, Rhythm Tachycardia Gastrointestinal: non tender soft Results Lab Laboratory Tests 06/27/16 12:23: B-Type Natriuretic Peptide 1837.6H 06/27/16 12:33: Activated Partial Thromboplast Time 37H, Alanine Aminotransferase (ALT/SGPT) 25 , Albumin 3.5, Alkaline Phosphatase 73, Anion Gap 15H, Anisocytosis SLIGHT, Aspartate Amino Transf (AST/SGOT) 91H, BUN/Creatinine Ratio 13, Band Neutrophils 1, Basophils # (Auto) 0.0, Basophils % (Manual) 0, Basophils (%) ( Auto) 0, Blood Urea Nitrogen 30H, Calcium Level 9.1, Carbon Dioxide Level 19L, Chloride Level 104, Creatinine 2.25H, Eosinophils # (Auto) 0.0, Eosinophils % ( Manual) 0, Eosinophils (%) (Auto) 0, Estimat Glomerular Filtration Rate 21, Glucose Level 133H, Hematocrit 38, Hemoglobin 12.3, INR Comment 1.1, Lymphocytes # (Auto) 4.8H, Lymphocytes % (Manual) 21, Lymphocytes (%) (Auto) 18 , Mean Corpuscular Hemoglobin 30, Mean Corpuscular Hemoglobin Concent 33, Mean Corpuscular Volume 91, Mean Platelet Volume 10.3, Monocytes # (Auto) 1.9H, Monocytes % (Manual) 7, Monocytes (%) (Auto) 7, Neutrophils # (Auto) 19.8H, Neutrophils % (Manual) 71, Neutrophils (%) (Auto) 75, Platelet Count 300, Potassium Level 4.0, Prothrombin Time 14.1, Red Blood Count 4.14L, Red Cell Distribution Width 14.8H, Sodium Level 138, Total Bilirubin 0.8, Total Protein 6.8, Troponin I 90.50*H, White Blood Count 26.4H 06/27/16 13:16: Lactic Acid Level 3.1*H 06/27/16 14:57: Lactic Acid Level 1.4 06/27/16 20:14: Lactic Acid Level 4.0*H 06/27/16 21:45: Urine Bacteria LARGEH, Urine Bilirubin 1+H, Urine Casts NONE, Urine Clarity SLIGHTLY CLOUDY, Urine Color YELLOW, Urine Crystals NONE, Urine Culture Indicated NO, Urine Glucose (UA) NEGATIVE, Urine Ketones NEGATIVE, Urine Leukocyte Esterase 3+H, Urine Mucus NEGATIVE, Urine Nitrite NEGATIVE, Urine Protein 3+H, Urine RBC 5-10H, Urine RBC (Auto) 5+H, Urine Specific [place] 1.020 , Urine Urobilinogen NORMAL, Urine WBC TNTCH, Urine Yeast MODERATEH, Urine pH 5 06/27/16 22:28: Lactic Acid Level 2.3*H 06/28/16 00:41: Glucometer 210H 06/28/16 00:45: Lactic Acid Level 3.3*H 06/28/16 04:00: Lactic Acid Level 3.9*H, Activated Partial Thromboplast Time 52H, Alanine Aminotransferase (ALT/SGPT) 476H, Albumin 2.7L, Alkaline Phosphatase 92, Anion Gap 12, Aspartate Amino Transf (AST/SGOT) 609H, BUN/Creatinine Ratio 15, Basophils # (Auto) 0.0, Basophils (%) (Auto) 0, Blood Urea Nitrogen 30H, Calcium Level 7.2L, Carbon Dioxide Level 11L, Chloride Level 112H, Creatinine 2.03H, Eosinophils # (Auto) 0.0, Eosinophils (%) (Auto) 0, Estimat Glomerular Filtration Rate 23, Glucose Level 192H, Hematocrit 33L, Hemoglobin 10.6L, INR Comment 1.8H, Lymphocytes # (Auto) 1.4, Lymphocytes (%) (Auto) 6L, Magnesium Level 1.4L, Mean Corpuscular Hemoglobin 30, Mean Corpuscular Hemoglobin Concent 32, Mean Corpuscular Volume 92, Mean Platelet Volume 10.0, Monocytes # (Auto) 1.3H, Monocytes (%) (Auto) 6, Neutrophils # (Auto) 20.7H, Neutrophils (%) (Auto ) 89H, Phosphorus Level 4.2, Platelet Count 224, Potassium Level 4.6, Prothrombin Time 20.8H, Red Blood Count 3.57L, Red Cell Distribution Width 14.8H , Sodium Level 135, Total Bilirubin 0.9, Total Protein 5.2L, White Blood Count 23.4H Assessment/Plan Assessment/Plan Assess & Plan/Chief Complaint CAD with subacute GA. Cardiogenic shock. Sepsis with multiorgan failure. Acute renal failure. Dementia. Chronic UTI. Hypothyroid. . 06/28/16. Non-ST elevated GA. Severe septic shock. Renal failure. Hypothyroid. Hypotensive. Elevated liver enzymes. Multiorgan involved Diagnosis/Problems: Clinical Quality Measures DVT/VTE Risk/Contraindication: Risk Factor Score Per Nursin RFS Level Per Nursing on Admit: 4+=Very High GILMA SCHUSTER DO Jun 28, 2016 07:19
--- NOTE | 2016-06-28 07:55 | Cardiology Progress Note ---
Subjective Subjective/Events-last exam patient is laying down in bed, denied any chest pain, denied any shortness of breath. Still hypotensive and oliguric. Review of Systems General: No Chills, No Night Sweats, Fatigue MalaiseNo Appetite, No Other HEENT: No Head Aches, No Visual Changes, No Eye Pain, No Ear Pain, No Dysphasia , No Sinus Congestion, No Post Nasal Drip, No Sore Throat, No Other Pulmonary: No Dyspnea, No Cough, No Pleuritic Chest Pain, No Other Cardiovascular: No: Chest Pain, Edema, Lt Headedness, Orthopnea, Other, Palpitations, Paroxysmal Noc. Dyspnea Objective-Cardiology Exam Last Set of Vital Signs Vital Signs 06/28/16 06/28/16 04:00 06:00 Temp 99.1 Pulse 112 Resp 22 B/P 99/59 Pulse Ox 95 O2 Delivery Room Air Capillary Refill : Less Than 3 Seconds I&O Bad tableGeneral: Alert, Cooperative, Moderate Distress HEENT: Atraumatic Neck: Supple, No Thyromegaly Lungs: Other (diminished breath sounds) Heart: Regular Rate, Normal S1, Normal S2, Other (systolic murmur present at LSB) Abdomen: Normal Bowel Sounds, Soft, No Tenderness Extremities: No Clubbing, No Cyanosis Skin: No Rashes, No Significant Lesion Neuro: Normal Speech, Cranial Nerves 3-12 NL Psych/Mental Status: Other (dementia) Results Lab Laboratory Tests 06/27/16 12:33 06/28/16 04:00 A/P-Cardiology Admission Diagnosis Subacute DE Cardiogenic Shock Septic Shock Dementia Assessment/Plan Subacute myocardial infarction, cardiac catheterization done showing severe multi-vessel disease. Medical therapy is recommended, family and patient did not want surgical evaluation, requested DO NOT RESUSCITATE. Continue on medical therapy and monitor. Hypotensive shock, multifactorial, cardiogenic and septic shock. Continue on pressors. Monitor closely. Acute mental status changes, history of dementia. Improving slowly. Septic shock with multiorgan failure- continue antibiotics and supportive care. Dr. Mcarthur consulted. Acute renal failure, receiving IV fluid and pressors, slow improvement, continue to monitor renal function Acute liver failure, probably shock liver due to hypotension, continue with supportive care and monitor liver enzymes Hypomagnesemia, managed by primary care physician. Dementia History of chronic UTI Hypothyroidism- management by PCP Clinical Quality Measures DVT/VTE Risk/Contraindication: Risk Factor Score Per Nursin RFS Level Per Nursing on Admit: 4+=Very High KARLO STEVENSON MD Jun 28, 2016 07:55
--- NOTE | 2016-06-28 08:02 | Diagnostic Imaging Report ---
INDICATION: Myocardial infarction. 0523 hours Comparison is made study of 06/27/2016. FINDINGS: Volume loss in right hemithorax is again noted. Prominence of interstitial markings has remained stable. There is a right jugular central venous catheter reaching the right atrium. No pneumothorax or focal consolidation is identified. Chronic trauma to the proximal left humerus is again noted. IMPRESSION: Interstitial markings in the lungs likely due to chronic underlying scarring. No acute abnormality or significant change is seen when compared to previous study. Dictated by: Dictated on workstation # [id number]
[2016-06-28] MEDS ORDERED: MEMANTINE 5 MG (NAMENDA) TABLET PO SCH (09:00)
[2016-06-28] MEDS ORDERED: CLOPIDOGREL 75 MG (PLAVIX) TABLET PO SCH (09:00)
[2016-06-28] MEDS ORDERED: ASPIRIN E.C. 81 MG (ECOTRIN) TAB PO SCH ×2 (09:00)
[2016-06-28] MEDS ORDERED: VASOPRESSIN INJECTION 20 UNIT in NS (IVPB) 50 ML IV SCH (10:30)
[2016-06-28] MEDS ORDERED: NS IV 1000 ML 1,000 ML IV SCH ×2 (11:07→12:45)
[2016-06-28 11:21] LABS: MEAN PLATELET VOLUME 10.3 FL (7.4-10.4); RED BLOOD COUNT 3.58 10^6/uL (4.35-5.85); RED CELL DISTRIBUTION WIDTH 14.9 % (10.0-14.5); WHITE BLOOD COUNT 25.4 10^3/uL (4.3-11.0)
[2016-06-28 11:43] LABS: CALCIUM 6.9 MG/DL (8.5-10.1); CREATININE SERUM 2.21 MG/DL (0.60-1.30); POTASSIUM 4.8 MMOL/L (3.6-5.0)
[2016-06-28] MEDS ORDERED: fentaNYL INJECTION 100 MCG/2 ML AMP ONE (12:56)
[2016-06-28] MEDS ORDERED: fentaNYL INJECTION 100 MCG/2 ML AMP IVP PRN (13:00)
[2016-06-28] MEDS ORDERED: metroNIDAZOLE 500 MG (FLAGYL) TAB PO SCH (13:00)
[2016-06-28] MEDS ORDERED: morphine INJ 4 MG/ML 1 ML (VIAL/SYRINGE) ONE (13:39)
--- NOTE | 2016-06-28 13:44 | Pulmonary Progress Note ---
Subjective Subjective/Events-last exam Family wants to make pt comfort care only. Exam Exam Vital Signs Date Time Temp Pulse Resp B/P Pulse Ox O2 Delivery O2 Flow Rate FiO2 06/28/16 12:07 64/38 06/28/16 11:58 96.6 06/28/16 09:00 95 06/28/16 08:12 98.5 06/28/16 07:00 111 06/28/16 06:00 112 22 99/59 95 Room Air 06/28/16 05:00 112 27 113/68 95 Room Air 06/28/16 04:00 96 06/28/16 04:00 99.1 114 8 74/52 96 Room Air 06/28/16 03:00 108 28 108/56 96 Room Air 06/28/16 02:00 112 8 107/76 95 Room Air 06/28/16 01:00 114 23 82/54 98 Room Air 06/28/16 01:00 114 06/28/16 00:00 97 06/28/16 00:00 98.6 114 13 100/80 96 Room Air 06/27/16 23:00 112 26 103/92 94 Room Air 06/27/16 22:00 107 24 98/72 94 Room Air 06/27/16 21:00 109 26 111/83 96 Room Air 06/27/16 20:00 96.3 106 18 89/73 99 Room Air 06/27/16 20:00 99 06/27/16 19:00 104 06/27/16 19:00 104 25 78/58 100 Room Air 06/27/16 18:00 98 15 98 Room Air 06/27/16 18:00 98 8 80/44 06/27/16 17:45 107 22 54/33 06/27/16 17:30 98 15 58/26 97 Room Air 06/27/16 17:00 107 22 76/46 96 Room Air 06/27/16 16:45 116 11 102/89 87 06/27/16 16:30 130 19 77/43 94 Room Air 06/27/16 16:15 118 13 96/69 95 Room Air 06/27/16 16:00 116 14 97/78 96 Room Air 06/27/16 15:45 107 12 102/64 97 Room Air 06/27/16 15:45 102/50 06/27/16 15:40 96.7 101 21 93/64 97 Room Air 06/27/16 14:21 101 20 98 I & O 06/28/16 07:00 Intake Total 6190.5 ml Output Total 210 ml Balance 5980.5 ml General Appearance: Moderate Distress HEENT: Normal ENT Inspection Neck: Full Range of Motion Normal Inspection Respiratory: Chest Non Tender Lungs Clear Normal Breath Sounds No Accessory Muscle Use No Respiratory Distress Cardiovascular: Regular Rate, Rhythm Tachycardia Capillary Refill: Less Than 3 Seconds Gastrointestinal: distended guarding Extremity: Normal Inspection Normal Range of Motion Neurologic/Psychiatric: No Motor/Sensory Deficits Normal Mood/Affect Other ( oriented to person and place only, awake alert, denies pain) Skin: Normal Color Warm/Dry Results Lab Laboratory Tests 06/27/16 12:33 06/28/16 04:00 06/28/16 11:05 Assessment/Plan Assessment/Plan Family at bedside including DOPA 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 They understand she will probably today without medical intervention. They repeat they only want to make sure she is comfortable. PT is now AIRCRAFT POWERPLANT REPAIRER -morphine Ativan, D/C all other medications Severe sepsis with shock -Continue aggressive IVF -Start solucortef -monitor CVPs -Wean levophed for SBP of 90 or MAP 65 Metabolic lactic acidosis -IVF Acute renal failure Dementia NSTEMI s/p cath Clinical Quality Measures DVT/VTE Risk/Contraindication: Risk Factor Score Per Nursin RFS Level Per Nursing on Admit: 4+=Very High DANIELLE CROWE DO Jun 28, 2016 13:44
[2016-06-28] MEDS: LORazepam INJ 2 MG/ML (ATIVAN) VIAL ONE ×2 (13:52→13:57)
[2016-06-28] MEDS ORDERED: TROUGH ORDER-PHARMACY XX NR (15:00)
[2016-06-28] MEDS ORDERED: VANCOMYCIN 1 GM/NS 250 ML IVPB IV SCH ×2 (16:00)
--- NOTE | 2016-06-29 07:52 | CARDIAC CATHETERIZATION ---
PROCEDURE PHYSICIAN: KARLO STEVENSON DATE OF PROCEDURE: 06/27/2016 REFERRING PHYSICIAN: Dr. Haider BRIEF HISTORY: Mrs. Arriola is an 85-year-old lady who was admitted for syncopal episodes, non-ST elevation myocardial infarction and hypotensive shock, brought for emergency cardiac catheterization. PROCEDURE NOTE: After explaining the procedure to the patient, all pros and cons were explained. All questions were answered. The patient signed a consent, then she was placed on the cardiac catheterization laboratory. The right groin was prepped in a sterile fashion. Local anesthesia applied to the right groin. 6-Croatian sheath was placed in the right femoral artery. I had difficulties advancing the J-wire through the iliac artery. I used a long Storq wire. Angiogram through the sheath was done and then combination of right and left Carina catheter were used to access the right and left coronary system. Multiple views were obtained. Pigtail catheter advanced to the left ventricular cavity. No left ventriculogram was done. Pullback LV to aorta was done. At the end of the procedure, sheath was removed. Mynx device deployed. Hemostasis achieved. FINDINGS: HEMODYNAMICS: LV pressure 82/22, end-diastolic pressure of 22. Aortic pressure 83/57, mean of 67. ANATOMY: 1. The left main coronary artery has 50 to 60% distal stenosis. 2. Left anterior descending artery heavily calcified artery with multiple segments of severe stenosis at the midportion and distally. 3. Left circumflex artery: The left circumflex artery is moderate in size. Two segments of severe stenosis at the proximal and mid circumflex artery. 4. 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 Proximally there is an area of severe stenosis. 5. No left ventriculogram was done. CONCLUSION: 1. Severe multivessel disease with cardiogenic shock, including distal left main. Long segment stenosis in the LAD with multiple segments of severe stenosis in the proximal LAD. Severe stenosis at proximal and mid circumflex artery and severe stenosis at the proximal and mid right coronary artery. 2. Elevated left ventricular end diastolic pressure. No left ventriculogram was done due to the underlying renal function. DISCUSSION AND RECOMMENDATION: Medical therapy at this point. The family requested DNR. Job ID: [id number] Dictated Date: 06/27/2016 16:41:54 Dogger Date: 06/29/2016 07:45:17 / windy
--- NOTE | 2016-06-29 09:24 | OPERATIVE REPORT ---
PROCEDURE PHYSICIAN: BEN LIMON DATE OF PROCEDURE: 06/27/2016 PREOPERATIVE DIAGNOSIS: 1. Hypotension. 2. SC. 3. Venous insufficiency. POSTOPERATIVE DIAGNOSIS: 1. Hypotension. 2. SC. 3. Venous insufficiency. PROCEDURE: Insertion of right IJ triple-lumen catheter with ultrasound guidance. SURGEON: Dr. Limon BARGE PILOT: None. ANESTHESIA: Lidocaine SPECIMENS: None BLOOD LOSS: Approximately 12 mL FLUIDS: None. POSTOPERATIVE: Stable. INDICATIONS FOR THE PROCEDURE: The patient is an 85-year-old female who had a massive SC, unfortunately unable to do any catheterization and sent to ICU. She was hypotensive and she wanted to start on dobutamine. She had little bit of venous insufficiency, and needed a central lumen catheter to put in a dobutamine and possibly Levophed. FINDINGS: The patient triple-lumen catheter, placed on the right IJ with ultrasound guidance. PROCEDURE NOTE: After informed consent was obtained patient was in her bed she was sterilely prepped and draped in the normal fashion. Local lidocaine used to infiltrate the skin of the right anterior neck. Then using the ultrasound probe an 18 gauge finder needle was inserted, watched it enter the vein. Good flash of blood. Unfortunately could not thread the guidewire, attempted 2 more times. Again got a good flash of blood but again could not thread the guidewire. Finally tried another time. Good flash of blood and this time able to advance a guidewire (using seldinger technique) down without any difficulty. Then removed the needle and made a stab incision atthe wire with number 11 blade. Then over the guidewire using the Seldinger technique, advanced the dilator. It went in easily and then removed and over the guidewire placed the triple-lumen catheter. Again, it went in easily without any difficulty. Then removed the guidewire then easily aspirated in all 3 ports and flushed with saline. Sutured this in place with a 2-0 silk suture. Caps were placed and then again aspirated and flushed with sterile saline and then at this point, took down the dressing. The nurse then placed OpSite and a stat chest x-ray ordered. The patient tolerated the procedure. She did have a little bit of pain, otherwise tolerated the procedure well. Job ID: [id number] Dictated Date: 06/27/2016 18:33:01 Dye Colorist Formulator Date: 06/29/2016 09:09:54 / windy READ
--- NOTE | 2016-06-29 10:03 | ECHOCARDIOGRAPHY REPORT ---
PROCEDURE PHYSICIAN: KARLO STEVENSON DATE OF PROCEDURE: 06/27/2016 TWO DIMENSIONAL ECHOCARDIOGRAM REPORT PRIMARY PHYSICIAN: OTHER PHYSICIAN: REFERRING PHYSICIAN: ORDERING PHYSICIAN: INDICATION FOR THE PROCEDURE: Cardiogenic shock MEASUREMENTS DERIVED VALUES LV DIAMETER (LAX) NORMALS NORMALS Diastolic 3.5 (3.6-5.2) Eject. Fract. 40% (60%+/-6%) Systolic (2.3-3.9) Diastolic Vol. % Shortening (0.22-0.42) Systolic Vol. Aortic Root IVS THICKNESS Diastolic 1.4 (0.6-1.1) LVPW THICKNESS Diastolic 1.4 (0.6-1.1) LA DIAMETER Systolic 3.6 (2.1-3.7) FINDINGS: 1. Technically difficult study. 2. 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 Systolic function is reduced. Estimated ejection fraction 40%. 3. The left atrium is normal in size. No clot or thrombus were seen within the left atrium. 4. The right atrium and right ventricle were not well visualized. 5. Mitral valve is calcified with mild mitral regurgitation noted by color Doppler flow. No mitral valve prolapse. No mitral valve stenosis. 6. Aortic valve is calcified. There is no significant aortic valve stenosis. 7. Tricuspid valve is normal in morphology with mild tricuspid regurgitation. Doppler across tricuspid valve estimated pulmonary artery pressure of 36+ right atrial pressure. 8. Pulmonic valve is functioning normally. 9. No pericardial effusion. CONCLUSION: 1. Technically difficult study. 2. Normal left ventricular size with mild left ventricular hypertrophy aneurysmal apex. Akinesia to dyskinesia of the mid to apical anterior wall, true apex. Systolic function is reduced. Estimated ejection fraction 40%. 3. Aortic valve sclerosis. No aortic stenosis. 4. Mild mitral and tricuspid regurgitation. 5. Estimated pulmonary artery pressure of 45 mmHg Job ID: [id number] Dictated Date: 06/28/2016 18:53:00 Medical Dosimetrist Date: 06/29/2016 09:58:54 / windy
--- OUTSIDE RECORDS SUMMARY | 2016-06-29 14:17 | XMS REPORT | Continuity of Care Document ---
Author Author [facility] Organization [facility] Address Unknown Phone Unavailable Care Team Providers Care Hvac Maintenance Technician Name Role Phone PCP Unavailable Source Comments Some departments are not documenting in the electronic medical record. If you do not see the information that you expected, contact Release of Information in the Health Information Management department at [phone] for further assistance in locating additional records.[facility] Active Allergies and Adverse Reactions [...]
--- NOTE | 2016-07-03 07:00 | Discharge Summary ---
Diagnosis/Chief Complaint Date of Admission Jun 27, 2016 at 14:32 Date of Discharge Jun 28, 2016 at 15:10 Discharge Diagnosis myocardial infarction. Non-ST elevated myocardial infarction. Septic shock. Acute renal failure. Leukocytosis. Dehydration. Anemia. infection. Near syncope. Chest pain. Dementia. Chest pain. Septic shock. Hypothyroid. Elevated liver enzymes. Comfort care Reason Hospital Visit patient was brought to the office today by [id number]. Patient has dementia and unable to give a history . According to the [id number] 3 days ago patient had a large bowel movement and then got up and felt dizzy. Patient has not taken any fluids in the last 3 days. Patient office was hypotensive and tachycardic. Patient was weak. Patient sent out to the emergency room. Troponin 90. Renal failure. Hypotensive. Patient admitted Surgeries gallbladder only History by family Discharge Summary Procedures cardiac cath Consultations pulmonology. Cardiology Discharge Physical Examination Allergies: Coded Allergies: Penicillins (Unverified Allergy, Unknown, 05/06/16) Vitals & I&Os Vital Signs Date Time Temp Pulse Resp B/P Pulse Ox O2 Delivery O2 Flow Rate FiO2 06/28/16 13:00 107 06/28/16 12:07 64/38 06/28/16 11:58 96.6 06/28/16 09:00 95 06/28/16 06:00 22 Room Air Hospital Course patient comfort care. Patient Labs (last 24 hrs) Laboratory Tests 06/27/16 12:23: B-Type Natriuretic Peptide 1837.6H 06/27/16 12:33: Activated Partial Thromboplast Time 37H, Alanine Aminotransferase (ALT/SGPT) 25 , Albumin 3.5, Alkaline Phosphatase 73, Anion Gap 15H, Anisocytosis SLIGHT, Aspartate Amino Transf (AST/SGOT) 91H, BUN/Creatinine Ratio 13, Band Neutrophils 1, Basophils # (Auto) 0.0, Basophils % (Manual) 0, Basophils (%) ( Auto) 0, Blood Urea Nitrogen 30H, Calcium Level 9.1, Carbon Dioxide Level 19L, Chloride Level 104, Creatinine 2.25H, Eosinophils # (Auto) 0.0, Eosinophils % ( Manual) 0, Eosinophils (%) (Auto) 0, Estimat Glomerular Filtration Rate 21, Glucose Level 133H, Hematocrit 38, Hemoglobin 12.3, INR Comment 1.1, Lymphocytes # (Auto) 4.8H, Lymphocytes % (Manual) 21, Lymphocytes (%) (Auto) 18 , Mean Corpuscular Hemoglobin 30, Mean Corpuscular Hemoglobin Concent 33, Mean Corpuscular Volume 91, Mean Platelet Volume 10.3, Monocytes # (Auto) 1.9H, Monocytes % (Manual) 7, Monocytes (%) (Auto) 7, Neutrophils # (Auto) 19.8H, Neutrophils % (Manual) 71, Neutrophils (%) (Auto) 75, Platelet Count 300, Potassium Level 4.0, Prothrombin Time 14.1, Red Blood Count 4.14L, Red Cell Distribution Width 14.8H, Sodium Level 138, Total Bilirubin 0.8, Total Protein 6.8, Troponin I 90.50*H, White Blood Count 26.4H 06/27/16 13:16: Lactic Acid Level 3.1*H 06/27/16 14:57: Lactic Acid Level 1.4 06/27/16 20:14: Lactic Acid Level 4.0*H 06/27/16 21:45: Urine Bacteria LARGEH, Urine Bilirubin 1+H, Urine Casts NONE, Urine Clarity SLIGHTLY CLOUDY, Urine Color YELLOW, Urine Crystals NONE, Urine Culture Indicated NO, Urine Glucose (UA) NEGATIVE, Urine Ketones NEGATIVE, Urine Leukocyte Esterase 3+H, Urine Mucus NEGATIVE, Urine Nitrite NEGATIVE, Urine Protein 3+H, Urine RBC 5-10H, Urine RBC (Auto) 5+H, Urine Specific [place] 1.020 , Urine Urobilinogen NORMAL, Urine WBC TNTCH, Urine Yeast MODERATEH, Urine pH 5 06/27/16 22:28: Lactic Acid Level 2.3*H 06/28/16 00:41: Glucometer 210H 06/28/16 00:45: Lactic Acid Level 3.3*H 06/28/16 04:00: Lactic Acid Level 3.9*H, Activated Partial Thromboplast Time 52H, Alanine Aminotransferase (ALT/SGPT) 476H, Albumin 2.7L, Alkaline Phosphatase 92, Anion Gap 12, Aspartate Amino Transf (AST/SGOT) 609H, B-Type Natriuretic Peptide 1786.9H, BUN/Creatinine Ratio 15, Basophils # (Auto) 0.0, Basophils (%) (Auto) 0 , Blood Urea Nitrogen 30H, Calcium Level 7.2L, Carbon Dioxide Level 11L, Chloride Level 112H, Creatinine 2.03H, Eosinophils # (Auto) 0.0, Eosinophils (% ) (Auto) 0, Estimat Glomerular Filtration Rate 23, Glucose Level 192H, Hematocrit 33L, Hemoglobin 10.6L, INR Comment 1.8H, Lymphocytes # (Auto) 1.4, Lymphocytes (%) (Auto) 6L, Magnesium Level 1.4L, Mean Corpuscular Hemoglobin 30 , Mean Corpuscular Hemoglobin Concent 32, Mean Corpuscular Volume 92, Mean Platelet Volume 10.0, Monocytes # (Auto) 1.3H, Monocytes (%) (Auto) 6, Neutrophils # (Auto) 20.7H, Neutrophils (%) (Auto) 89H, Phosphorus Level 4.2, Platelet Count 224, Potassium Level 4.6, Prothrombin Time 20.8H, Red Blood Count 3.57L, Red Cell Distribution Width 14.8H, Sodium Level 135, Total Bilirubin 0.9, Total Protein 5.2L, White Blood Count 23.4H 06/28/16 08:20: Lactic Acid Level 4.4*H 06/28/16 09:10: Stool Occult Blood Immunoassay POSITIVEH 06/28/16 11:05: Anion Gap 13, BUN/Creatinine Ratio 14, Blood Urea Nitrogen 30H, Calcium Level 6.9L, Carbon Dioxide Level 10L, Chloride Level 111H, Creatinine 2.21H, Estimat Glomerular Filtration Rate 21, Glucose Level 170H, Hematocrit 33L, Hemoglobin 10.7L, Mean Corpuscular Hemoglobin 30, Mean Corpuscular Hemoglobin Concent 32, Mean Corpuscular Volume 93, Mean Platelet Volume 10.3, Platelet Count 186, Potassium Level 4.8, Red Blood Count 3.58L, Red Cell Distribution Width 14.9H, Sodium Level 134L, White Blood Count 25.4H 06/28/16 11:51: Glucometer 159H 06/28/16 12:34: Lactic Acid Level 7.0*H Microbiology 06/27/16 Blood Culture - Final, Complete No growth 06/28/16 C. difficile GDH Antigen & Toxins - Final, Complete 06/27/16 Urine Culture - Final, Complete Yeast Species Enterococcus Faecalis Pending Labs Microbiology Date/Time Source Procedure Growth Status 06/27/16 13:16 Peripheral Lt Ac Blood Culture - Final No growth Complete 06/27/16 12:33 Peripheral Left Wrist Blood Culture - Final No growth Complete 06/28/16 09:10 Stool C. difficile GDH Antigen & Toxins - Final Complete 06/27/16 21:45 Urine .er/Not Indicated Urine Culture - Final Yeast Species Enterococcus Faecalis Complete Laboratory Tests 06/27/16 12:23: B-Type Natriuretic Peptide 1837.6 06/27/16 12:33: Activated Partial Thromboplast Time 37, Alanine Aminotransferase (ALT/SGPT) 25, Albumin 3.5, Alkaline Phosphatase 73, Anion Gap 15, Anisocytosis SLIGHT, Aspartate Amino Transf (AST/SGOT) 91, BUN/Creatinine Ratio 13, Band Neutrophils 1, Basophils # (Auto) 0.0, Basophils % (Manual) 0, Basophils (%) (Auto) 0, Blood Urea Nitrogen 30, Calcium Level 9.1, Carbon Dioxide Level 19, Chloride Level 104, Creatinine 2.25, Eosinophils # (Auto) 0.0, Eosinophils % (Manual) 0, Eosinophils (%) (Auto) 0, Estimat Glomerular Filtration Rate 21, Glucose Level 133, Hematocrit 38, Hemoglobin 12.3, INR Comment 1.1, Lymphocytes # (Auto) 4.8, Lymphocytes % (Manual) 21, Lymphocytes (%) (Auto) 18, Mean Corpuscular Hemoglobin 30, Mean Corpuscular Hemoglobin Concent 33, Mean Corpuscular Volume 91, Mean Platelet Volume 10.3, Monocytes # (Auto) 1.9, Monocytes % (Manual) 7, Monocytes (%) (Auto) 7, Neutrophils # (Auto) 19.8, Neutrophils % (Manual) 71, Neutrophils (%) (Auto) 75, Platelet Count 300, Potassium Level 4.0, Prothrombin Time 14.1, Red Blood Count 4.14, Red Cell Distribution Width 14.8, Sodium Level 138, Total Bilirubin 0.8, Total Protein 6.8, Troponin I 90.50, White Blood Count 26.4 06/27/16 13:16: Lactic Acid Level 3.1 06/27/16 14:57: Lactic Acid Level 1.4 06/27/16 20:14: Lactic Acid Level 4.0 06/27/16 21:45: Urine Bacteria LARGE, Urine Bilirubin 1+, Urine Casts NONE, Urine Clarity SLIGHTLY CLOUDY, Urine Color YELLOW, Urine Crystals NONE, Urine Culture Indicated NO, Urine Glucose (UA) NEGATIVE, Urine Ketones NEGATIVE, Urine Leukocyte Esterase 3+, Urine Mucus NEGATIVE, Urine Nitrite NEGATIVE, Urine Protein 3+, Urine RBC 5-10, Urine RBC (Auto) 5+, Urine Specific [place] 1.020, Urine Urobilinogen NORMAL, Urine WBC TNTC, Urine Yeast MODERATE, Urine pH 5 06/27/16 22:28: Lactic Acid Level 2.3 06/28/16 00:41: Glucometer 210 06/28/16 00:45: Lactic Acid Level 3.3 06/28/16 04:00: Lactic Acid Level 3.9, Activated Partial Thromboplast Time 52, Alanine Aminotransferase (ALT/SGPT) 476, Albumin 2.7, Alkaline Phosphatase 92, Anion Gap 12, Aspartate Amino Transf (AST/SGOT) 609, B-Type Natriuretic Peptide 1786.9 , BUN/Creatinine Ratio 15, Basophils # (Auto) 0.0, Basophils (%) (Auto) 0, Blood Urea Nitrogen 30, Calcium Level 7.2, Carbon Dioxide Level 11, Chloride Level 112, Creatinine 2.03, Eosinophils # (Auto) 0.0, Eosinophils (%) (Auto) 0, Estimat Glomerular Filtration Rate 23, Glucose Level 192, Hematocrit 33, Hemoglobin 10.6, INR Comment 1.8, Lymphocytes # (Auto) 1.4, Lymphocytes (%) ( Auto) 6, Magnesium Level 1.4, Mean Corpuscular Hemoglobin 30, Mean Corpuscular Hemoglobin Concent 32, Mean Corpuscular Volume 92, Mean Platelet Volume 10.0, Monocytes # (Auto) 1.3, Monocytes (%) (Auto) 6, Neutrophils # (Auto) 20.7, Neutrophils (%) (Auto) 89, Phosphorus Level 4.2, Platelet Count 224, Potassium Level 4.6, Prothrombin Time 20.8, Red Blood Count 3.57, Red Cell Distribution Width 14.8, Sodium Level 135, Total Bilirubin 0.9, Total Protein 5.2, White Blood Count 23.4 06/28/16 08:20: Lactic Acid Level 4.4 06/28/16 09:10: Stool Occult Blood Immunoassay POSITIVE 06/28/16 11:05: Anion Gap 13, BUN/Creatinine Ratio 14, Blood Urea Nitrogen 30, Calcium Level 6.9 , Carbon Dioxide Level 10, Chloride Level 111, Creatinine 2.21, Estimat Glomerular Filtration Rate 21, Glucose Level 170, Hematocrit 33, Hemoglobin 10.7 , Mean Corpuscular Hemoglobin 30, Mean Corpuscular Hemoglobin Concent 32, Mean Corpuscular Volume 93, Mean Platelet Volume 10.3, Platelet Count 186, Potassium Level 4.8, Red Blood Count 3.58, Red Cell Distribution Width 14.9, Sodium Level 134, White Blood Count 25.4 06/28/16 11:51: Glucometer 159 06/28/16 12:34: Lactic Acid Level 7.0 Discharge Home Medications: Active Scripts Active Reported Mirtazapine 7.5 Mg Tablet 7.5 Mg PO HS Memantine HCl 5 Mg Tablet 5 Mg PO DAILY Donepezil HCl 5 Mg Tablet 5 Mg PO HS Levothyroxine Sodium 50 Mcg Tablet 50 Mcg PO DAILY Instructions to patient/family Please see electonic discharge instructions given to patient. Clinical Quality Measures DVT/VTE Risk/Contraindication: Risk Factor Score Per Nursin RFS Level Per Nursing on Admit: 4+=Very High IGLMA SCHUSTER DO Jul 03, 2016 07:00
== END 2016-06-28 15:10 | disposition expired | DRG 871 ==
LOC: EDUNIT# 12:06 → ER 12:07 → CATH 14:32 → ICU 14:32 → CATH 15:40 → UNDOFXSDCACCOM 06-28 13:48 → UNDOFXSDCRRACCOM 06-28 13:48 → UNDOFXSDCSVC 06-28 13:48 → ICU 06-28 15:10 → CATH 06-28 15:10
PROVIDERS: ADMIT Internal Medicine Cardiovascular Disease; ATTEND Internal Medicine Cardiovascular Disease
PROC: 4A023N7 Measurement of Cardiac Sampling and Pressure, Left Heart, Percutaneous Approach (ICD-10-PCS; principal; 2016-06-27)
PROC: B2111ZZ Fluoroscopy of Multiple Coronary Arteries using Low Osmolar Contrast (ICD-10-PCS; 2016-06-27)
DX: A41.9 Sepsis, unspecified organism (principal); R65.21 Severe sepsis with septic shock; R57.0 Cardiogenic shock; I21.4 Non-ST elevation (NSTEMI) myocardial infarction; N17.9 Acute kidney failure, unspecified; K72.00 Acute and subacute hepatic failure without coma; I25.10 Atherosclerotic heart disease of native coronary artery without angina pectoris; Z66 Do not resuscitate; Z51.5 Encounter for palliative care; E86.0 Dehydration; I10 Essential (primary) hypertension; E03.9 Hypothyroidism, unspecified; N39.0 Urinary tract infection, site not specified; E83.42 Hypomagnesemia; F03.90 Unspecified dementia, unspecified severity, without behavioral disturbance, psychotic disturbance, mood disturbance, and anxiety
CPT/HCPCS: 36415; 71010; 80048; 80053; 81000; 82274; 82962; 83605; 83735; 83880; 84100; 84484; 85007; 85025; 85027; 85610; 85730; 87040; 87077; 87088; 87324; 87449; 93005; 93306; 93458; 96360